=== PATIENT | female | born 1970 | race Caucasian/White ===

== ENCOUNTER 2021-04-27 09:32 | Inpatient (IN) | payer OTHER ==
[~2021-04-27] VITALS: Ht 162.6 cm; Wt 85.4 kg
[2021-04-27] MEDS ORDERED: SODIUM CHLORIDE 0.9% 1,000 ML IV ONE (09:45)
[2021-04-27 10:06] LABS: ANION GAP 9 mmol/L (8-16); CALCIUM, TOTAL 9.5 mg/dL (8.8-10.5); CARBON DIOXIDE 27 mmol/L (22-29); CHLORIDE 103 mmol/L (98-107); CREATININE 0.92 mg/dL (0.60-1.30); GLOMERULAR FILTR. RATE CALC > 60 mL/min (>60); GLUCOSE,RANDOM 123 mg/dL (70-110); POTASSIUM 3.2 mmol/L (3.5-5.1); SODIUM SERUM 139 mmol/L (136-145); UREA NITROGEN, BLOOD 10 mg/dL (7-18)
[2021-04-27 10:08] LABS: BASOPHILS % (AUTO) 0.4 % (0.0-2.0); EOSINOPHILS % (AUTO) 0.8 % (1.0-6.0); HEMOGLOBIN 13.9 g/dL (12.0-16.0); LYMPHOCYTES # (AUTO) 0.9 K/uL (1.0-4.8); LYMPHOCYTES % (AUTO) 14.7 % (22.0-44.0); MEAN CORPUSCULAR HEMOGLOBIN 31.5 pg (26.0-34.0); MEAN CORPUSCULAR HGB CONC 33.8 G/dL (31.0-37.0); MEAN CORPUSCULAR VOLUME 93 fL (80-100); MONOCYTES # (AUTO) 0.4 K/uL (0.1-1.0); MONOCYTES % (AUTO) 6.8 % (2.0-9.0); NEUTROPHILS # (AUTO) 4.5 K/uL (1.8-7.7); NEUTROPHILS % (AUTO) 77.3 % (40.0-70.0); PLATELET COUNT (AUTO) 220 K/uL (150-450); RED CELL DISTRIBUTION WIDTH 13.3 % (11.5-14.5)
[2021-04-27 10:14] LABS: SALICYLATE 1.2 mg/dL (2.8-20.0)
[2021-04-27 10:19] LABS: ACETAMINOPHEN < 2 mcg/mL (10-30); ALANINE AMINOTRANSFERASE 28 U/L (12-78); ALBUMIN 4.1 g/dL (3.4-5.0); ALKALINE PHOSPHATASE 43 U/L (46-116); ASPARTATE AMINOTRANSFERASE 19 U/L (15-37); BILIRUBIN,TOTAL 0.4 mg/dL (0.1-1.0); HCG,QUANTITATIVE < 1 mIU/mL (0-6); TOTAL PROTEIN, SERUM 7.9 g/dL (6.4-8.2)
[2021-04-27] MEDS ORDERED: POTASSIUM CHL 10 MEQ/WATER 50 ML IV PRN (10:45)
[2021-04-27] MEDS ORDERED: MAGNESIUM SULFATE 2 GM/WATER 50 ML IV PRN (10:45)
[2021-04-27] MEDS ORDERED: MAGNESIUM SULFATE 4 GM/WATER 100 ML IV PRN (10:45)
[2021-04-27] MEDS ORDERED: MAGNESIUM OXIDE 400 MG TABLET PO PRN (10:45)
[2021-04-27] MEDS ORDERED: ONDANSETRON HCL 4 MG/2 ML VIAL IVP PRN (10:45)
[2021-04-27] MEDS ORDERED: POTASSIUM CHLORIDE 20 MEQ ER TABLET PO PRN (10:45)
[2021-04-27 11:02] LABS: COVID AG,FIA SOURCE NASOPHARYNGEAL
[2021-04-27] MEDS: PANTOPRAZOLE SODIUM 40 MG/VIAL IVP SCH (11:47)
[2021-04-27] MEDS: SODIUM CHLORIDE 0.9% 1,000 ML IV SCH ×2 (12:00→20:28)
[2021-04-27] MEDS: HEPARIN SODIUM,PORCINE 5,000 UNITS/ML VIAL SQ SCH ×2 (15:51→23:45)
[2021-04-27 17:35] LABS: AMPHET/METH SCREEN,URINE NEGATIVE (NEGATIVE); BARBITURATE SCREEN, URINE NEGATIVE (NEGATIVE); BENZODIAZEPINES SCREEN,URINE NEGATIVE (NEGATIVE); CANNABINOID SCREEN,URINE POSITIVE (NEGATIVE); COCAINE SCREEN,URINE NEGATIVE (NEGATIVE); METHADONE SCREEN, URINE NEGATIVE (NEGATIVE); OPIATE SCREEN,URINE NEGATIVE (NEGATIVE)
[2021-04-27 17:37] LABS: PHENCYCLIDINE SCREEN,URINE NEGATIVE (NEGATIVE)
[2021-04-27] MEDS ORDERED: HALOPERIDOL LACTATE 5 MG/ML VIAL IM ONE (18:00)
[2021-04-27] MEDS ORDERED: LORazepam 2 MG/ML VIAL IM ONE (18:00)
[2021-04-27] MEDS ORDERED: DiphenhydrAMINE HCL 50 MG/ML VIAL IM ONE (18:00)
[2021-04-27] MEDS: DOCUSATE SODIUM 100 MG CAPSULE PO SCH (20:49)
[2021-04-28] MEDS: PANTOPRAZOLE SODIUM 40 MG/VIAL IVP SCH (08:56)
[2021-04-28] MEDS: HEPARIN SODIUM,PORCINE 5,000 UNITS/ML VIAL SQ SCH (08:56)
[2021-04-28] MEDS: SODIUM CHLORIDE 0.9% 1,000 ML IV SCH (08:56)
[2021-04-28] MEDS: DOCUSATE SODIUM 100 MG CAPSULE PO SCH ×2 (08:57→16:16)
[2021-04-28 10:15] LABS: ANION GAP 13 mmol/L (8-16); CALCIUM, TOTAL 8.9 mg/dL (8.8-10.5); CARBON DIOXIDE 26 mmol/L (22-29); CHLORIDE 106 mmol/L (98-107); CREATININE 0.67 mg/dL (0.60-1.30); GLOMERULAR FILTR. RATE CALC > 60 mL/min (>60); GLUCOSE,RANDOM 105 mg/dL (70-110); POTASSIUM 3.2 mmol/L (3.5-5.1); SODIUM SERUM 145 mmol/L (136-145); UREA NITROGEN, BLOOD 7 mg/dL (7-18)
[2021-04-28] MEDS ORDERED: HALOPERIDOL 5 MG TABLET PO PRN (11:15)
[2021-04-28] MEDS ORDERED: INFLUENZA VIRUS VACCINE QVS 2021-22 (6MO+)/PF 60 MCG/0.5 ML SYRINGE IM. ONE (14:00)
[2021-04-28 15:01] VITALS: BP 144/69
[2021-04-28] MEDS ORDERED: POTASSIUM CHLORIDE 20 MEQ ER TABLET PO ONE (15:30)
[2021-04-28 16:05] VITALS: BP 143/73
[2021-04-28] MEDS: ZOLPIDEM TARTRATE 10 MG TABLET PO PRN (20:30)
[2021-04-28] MEDS: LORazepam 2 MG TABLET PO PRN (20:30)
[2021-04-29 00:46] VITALS: BP 138/76
[2021-04-29 08:21] VITALS: BP 133/105
[2021-04-29] MEDS: DOCUSATE SODIUM 100 MG CAPSULE PO SCH ×2 (08:24→16:46)
[2021-04-29] MEDS: ACETAMINOPHEN 325 MG TABLET PO PRN ×2 (12:10→20:38)
[2021-04-29 16:15] VITALS: BP 130/85
[2021-04-29] MEDS: ZOLPIDEM TARTRATE 10 MG TABLET PO PRN (20:38)
[2021-04-29] MEDS: LORazepam 2 MG TABLET PO PRN (20:41)
[2021-04-29] MEDS ORDERED: BENZOCAINE/MENTHOL LOZENGE PO PRN (23:15)
[2021-04-29] MEDS ORDERED: ONDANSETRON HCL 4 MG TABLET PO PRN (23:15)
[2021-04-29] MEDS ORDERED: BACITRACIN 28 GM OINTMENT TP PRN (23:15)
[2021-04-29] MEDS ORDERED: MAG HYDROX/AL HYDROX/SIMETH ES 30 ML SUSPENSION UDCUP PO PRN (23:15)
[2021-04-29] MEDS ORDERED: ACETAMINOPHEN 325 MG TABLET PO PRN (23:15)
[2021-04-29] MEDS ORDERED: LOPERAMIDE HCL 2 MG CAPSULE PO PRN (23:15)
[2021-04-29] MEDS ORDERED: PETROLATUM,WHITE 28 GM JELLY TP PRN (23:15)
[2021-04-29] MEDS ORDERED: CloNIDine HCL 0.1 MG TABLET PO PRN (23:15)
[2021-04-29] MEDS ORDERED: OMEPRAZOLE 20 MG CAPSULE PO PRN (23:15)
[2021-04-29] MEDS ORDERED: ALBUTEROL SULFATE HFA 90 MCG/PUFF 8 GM INHALER IH PRN (23:15)
[2021-04-29] MEDS ORDERED: MAGNESIUM HYDROXIDE SUSPENSION 30 ML UDCUP PO PRN (23:15)
[2021-04-29] MEDS ORDERED: IBUPROFEN 600 MG TABLET PO PRN (23:15)
[2021-04-30 00:58] VITALS: BP 126/75
[2021-04-30 01:48] VITALS: BP 120/84
[2021-04-30] MEDS: LORazepam 2 MG TABLET PO PRN (01:48)
[2021-04-30 08:06] VITALS: BP 116/80
[2021-04-30] MEDS: DOCUSATE SODIUM 100 MG CAPSULE PO SCH (08:12)
[2021-04-30 08:24] LABS: ANION GAP 8 mmol/L (8-16); CALCIUM, TOTAL 9.6 mg/dL (8.8-10.5); CARBON DIOXIDE 30 mmol/L (22-29); CHLORIDE 106 mmol/L (98-107); CHOL/HDL RATIO 2.6 (3.9-5.7); CHOLESTEROL 166 mg/dL (131-200); CREATININE 0.73 mg/dL (0.60-1.30); FREE T4 (FREE THYROXINE) 1.32 ng/dL (0.76-1.46); GLOMERULAR FILTR. RATE CALC > 60 mL/min (>60); GLUCOSE,RANDOM 116 mg/dL (70-110); HDL CHOLESTEROL 65 mg/dL (40-60); LDL CHOL (CALC.) 90 mg/dL (0-130); POTASSIUM 3.7 mmol/L (3.5-5.1); SODIUM SERUM 144 mmol/L (136-145); THYROID STIMULATING HORMONE 1.24 uIU/mL (0.36-3.74); TRIGLYCERIDES 57 mg/dL (15-150); UREA NITROGEN, BLOOD 5 mg/dL (7-18)
== END 2021-04-30 11:35 | disposition home or self-care (01) | DRG 885 ==
LOC: EMS 09:37 → B3A 04-28 09:38
PROVIDERS: ADMIT Psychiatry & Neurology Psychiatry; ATTEND Psychiatry & Neurology Psychiatry
DX: F31.9 Bipolar disorder, unspecified (principal); T42.6X2A Poisoning by other antiepileptic and sedative-hypnotic drugs, intentional self-harm, initial encounter; Z20.822 Contact with and (suspected) exposure to COVID-19; E87.6 Hypokalemia; E66.9 Obesity, unspecified; F22 Delusional disorders; F43.10 Post-traumatic stress disorder, unspecified; G47.00 Insomnia, unspecified; K59.00 Constipation, unspecified; Y92.89 Other specified places as the place of occurrence of the external cause; Z23 Encounter for immunization; Z88.2 Allergy status to sulfonamides; Z68.32 Body mass index [BMI] 32.0-32.9, adult
CPT/HCPCS: 80048; 80053; 80061; 83735; 84439; 84443; 84702; 85025; 90686; 93005; 99291; C9113; G0480; G0481; J1200; J1630; J1644; J2060; J7030

== ENCOUNTER 2022-07-10 13:21 | Inpatient (IN) | payer OTHER ==
[~2022-07-10] VITALS: Ht 162.6 cm; Wt 64.8 kg
[2022-07-10 15:24] LABS: BASOPHILS % (AUTO) 0.7 % (0.0-2.0); EOSINOPHILS % (AUTO) 0.5 % (1.0-6.0); HEMATOCRIT 40.2 % (36-46); HEMOGLOBIN 13.2 g/dL (12.0-16.0); LYMPHOCYTES # (AUTO) 1.2 K/uL (1.0-4.8); MEAN CORPUSCULAR HEMOGLOBIN 30.9 pg (26.0-34.0); MEAN CORPUSCULAR HGB CONC 32.7 G/dL (31.0-37.0); MEAN CORPUSCULAR VOLUME 95 fL (80-100); MONOCYTES # (AUTO) 0.5 K/uL (0.1-1.0); MONOCYTES % (AUTO) 6.2 % (2.0-9.0); NEUTROPHILS % (AUTO) 77.6 % (40.0-70.0); PLATELET COUNT (AUTO) 271 K/uL (150-450); RED BLOOD CELL COUNT(AUTO) 4.26 MIL/uL (4.00-5.20); RED CELL DISTRIBUTION WIDTH 13.5 % (11.5-14.5)
[2022-07-10 15:25] LABS: COVID AG,FIA SOURCE NASAL SWAB
[2022-07-10 15:35] LABS: ANION GAP 8 mmol/L (8-16); CALCIUM, TOTAL 8.5 mg/dL (8.8-10.5); CARBON DIOXIDE 29 mmol/L (22-29); CHLORIDE 102 mmol/L (98-107); CREATININE 0.65 mg/dL (0.60-1.30); GLOMERULAR FILTR. RATE CALC > 60 mL/min (>60); GLUCOSE,RANDOM 109 mg/dL (70-110); POTASSIUM 3.7 mmol/L (3.5-5.1); SODIUM SERUM 139 mmol/L (136-145); UREA NITROGEN, BLOOD 9 mg/dL (7-18)
[2022-07-10 15:40] LABS: ALANINE AMINOTRANSFERASE 30 U/L (12-78); ALBUMIN 3.9 g/dL (3.4-5.0); ALKALINE PHOSPHATASE 47 U/L (46-116); ASPARTATE AMINOTRANSFERASE 20 U/L (15-37); BILIRUBIN,TOTAL 0.2 mg/dL (0.1-1.0)
[2022-07-10] MEDS ORDERED: ZOLPIDEM TARTRATE 10 MG TABLET PO PRN (16:00)
[2022-07-10 17:09] LABS: APPEARANCE,URINE HAZY (CLEAR); BILIRUBIN,URINE NEGATIVE (NEGATIVE); GLUCOSE, URINE (UA) TRACE mg/dL (NEGATIVE); KETONES,URINE NEGATIVE (NEGATIVE); LEUKOCYTE ESTERASE ,URINE NEGATIVE (NEGATIVE); NITRATE,URINE NEGATIVE (NEGATIVE); OCCULT BLOOD,URINE NEGATIVE (NEGATIVE); PH,URINE 6.5 (5.0-8.0); PROTEIN,URINE NEGATIVE (NEGATIVE); SPECIFIC GRAVITIY, URINE 1.011 (1.003-1.030); UROBILINOGEN,URINE <=1.0 mg/dL (<=1.0)
[2022-07-10 17:15] LABS: AMPHET/METH SCREEN,URINE NEGATIVE (NEGATIVE); BARBITURATE SCREEN, URINE NEGATIVE (NEGATIVE); BENZODIAZEPINES SCREEN,URINE NEGATIVE (NEGATIVE); CANNABINOID SCREEN,URINE POSITIVE (NEGATIVE); COCAINE SCREEN,URINE NEGATIVE (NEGATIVE); METHADONE SCREEN, URINE NEGATIVE (NEGATIVE); OPIATE SCREEN,URINE NEGATIVE (NEGATIVE); PHENCYCLIDINE SCREEN,URINE NEGATIVE (NEGATIVE)
[2022-07-10] MEDS ORDERED: PETROLATUM,WHITE 5 GM PACKET JELLY TP ONE (18:45)
[2022-07-10] MEDS ORDERED: BISACODYL 5 MG EC TABLET PO PRN (19:15)
[2022-07-10 21:14] VITALS: BP 139/81
[2022-07-10] MEDS ORDERED: HydrOXYzine PAMOATE 50 MG CAPSULE PO PRN (21:45)
[2022-07-10] MEDS ORDERED: TUBERCULIN, PURIFIED PROTEIN DERIVATIVE 5 TU/0.1 ML SYRINGE ID ONE (21:45)
[2022-07-10] MEDS ORDERED: MAG HYDROX/AL HYDROX/SIMETH ES 30 ML SUSPENSION UDCUP PO PRN (21:45)
[2022-07-10] MEDS ORDERED: MAGNESIUM HYDROXIDE SUSPENSION 30 ML UDCUP PO PRN (21:45)
[2022-07-10] MEDS ORDERED: LOPERAMIDE HCL 2 MG CAPSULE PO PRN (21:45)
[2022-07-10] MEDS ORDERED: ACETAMINOPHEN 325 MG TABLET PO PRN (21:45)
[2022-07-10] MEDS ORDERED: PROMETHAZINE HCL 25 MG TABLET PO PRN (21:45)
[2022-07-10] MEDS ORDERED: GuaiFENesin/D-METHORPHAN [SUGAR-FREE] 200-20MG/10 ML SYRUP UDCUP PO PRN (21:45)
[2022-07-10] MEDS ORDERED: INFLUENZA VIRUS VACCINE QVS 2022-23 (6MO+)/PF 60 MCG/0.5 ML SYRINGE IM. ONE (22:00)
[2022-07-10] MEDS: LORazepam 2 MG TABLET PO PRN (22:26)
[2022-07-11 07:42] LABS: HEMOGLOBIN A1C 5.8 % (3.8-5.6)
[2022-07-11 07:46] LABS: CHOL/HDL RATIO 2.4 (3.9-5.7); FREE T4 (FREE THYROXINE) 0.83 ng/dL (0.76-1.46); THYROID STIMULATING HORMONE 0.95 uIU/mL (0.36-3.74)
[2022-07-11] MEDS: NALTREXONE HCL 50 MG TABLET PO SCH (08:51)
[2022-07-11] MEDS: THIAMINE 100 MG TABLET PO SCH ×2 (08:51→16:38)
[2022-07-11] MEDS: OMEGA-3/DHA/EPA/FISH OIL 1,000 MG CAPSULE PO SCH (08:51)
[2022-07-11] MEDS: FOLIC ACID 1 MG TABLET PO SCH (08:51)
[2022-07-11] MEDS: MULTIVITAMINS WITH MINERALS, THERAPEUTIC TABLET PO SCH (08:52)
[2022-07-11] MEDS ORDERED: DEXTROMETHORPHAN HBR/QUINIDINE 20/10 MG CAPSULE PO SCH (09:00)
[2022-07-11 09:32] VITALS: BP 136/79
[2022-07-11] MEDS: LORazepam 2 MG TABLET PO PRN (14:45)
[2022-07-11] MEDS: OLANZapine 5 MG RAPDIS TABLET PO PRN (14:45)
[2022-07-11 20:30] VITALS: BP 115/73
[2022-07-11] MEDS: MELATONIN 5 MG TABLET PO SCH (20:35)
[2022-07-11] MEDS: DIVALPROEX SODIUM 250 MG ER TABLET PO SCH (20:35)
[2022-07-11] MEDS ORDERED: OLANZapine 5 MG RAPDIS TABLET PO SCH (21:00)
[2022-07-11] MEDS ORDERED: MIRTAZAPINE 15 MG TABLET PO SCH (21:00)
[2022-07-12] MEDS: MULTIVITAMINS WITH MINERALS, THERAPEUTIC TABLET PO SCH (08:56)
[2022-07-12] MEDS: OMEGA-3/DHA/EPA/FISH OIL 1,000 MG CAPSULE PO SCH (08:56)
[2022-07-12] MEDS: NALTREXONE HCL 50 MG TABLET PO SCH (08:56)
[2022-07-12] MEDS: FOLIC ACID 1 MG TABLET PO SCH (08:57)
[2022-07-12] MEDS: THIAMINE 100 MG TABLET PO SCH ×2 (08:57→16:26)
[2022-07-12] MEDS: LORazepam 2 MG TABLET PO PRN (08:57)
[2022-07-12 09:12] VITALS: BP 126/68
[2022-07-12 20:34] VITALS: BP 130/81
[2022-07-12] MEDS: MELATONIN 5 MG TABLET PO SCH (20:38)
[2022-07-12] MEDS: OLANZapine 10 MG RAPDIS TABLET PO SCH (20:39)
[2022-07-12] MEDS: DIVALPROEX SODIUM 250 MG ER TABLET PO SCH (20:39)
[2022-07-13 08:37] VITALS: BP 139/74
[2022-07-13] MEDS: NALTREXONE HCL 50 MG TABLET PO SCH (09:04)
[2022-07-13] MEDS: MULTIVITAMINS WITH MINERALS, THERAPEUTIC TABLET PO SCH (09:04)
[2022-07-13] MEDS: FOLIC ACID 1 MG TABLET PO SCH (09:04)
[2022-07-13] MEDS: OMEGA-3/DHA/EPA/FISH OIL 1,000 MG CAPSULE PO SCH (09:04)
[2022-07-13] MEDS: THIAMINE 100 MG TABLET PO SCH ×2 (09:04→16:39)
[2022-07-13] MEDS: LORazepam 2 MG TABLET PO PRN (10:41)
[2022-07-13] MEDS: OLANZapine 5 MG RAPDIS TABLET PO PRN (10:41)
[2022-07-13] MEDS ORDERED: DIVA-85 PO (17:21)
[2022-07-13] MEDS ORDERED: NALT50TA PO (17:21)
[2022-07-13] MEDS ORDERED: OMEG-135 PO (17:21)
[2022-07-13] MEDS ORDERED: MELA5TAB40 PO (17:21)
[2022-07-13] MEDS ORDERED: OLAN10TA26 PO (17:21)
[2022-07-13 20:05] VITALS: BP 124/75
[2022-07-13] MEDS: DIVALPROEX SODIUM 250 MG ER TABLET PO SCH (20:09)
[2022-07-13] MEDS: OLANZapine 10 MG RAPDIS TABLET PO SCH (20:10)
[2022-07-13] MEDS: MELATONIN 5 MG TABLET PO SCH (20:10)
[2022-07-14 08:39] VITALS: BP 117/70
[2022-07-14] MEDS: OMEGA-3/DHA/EPA/FISH OIL 1,000 MG CAPSULE PO SCH (08:49)
[2022-07-14] MEDS: FOLIC ACID 1 MG TABLET PO SCH (08:50)
[2022-07-14] MEDS: THIAMINE 100 MG TABLET PO SCH (08:50)
[2022-07-14] MEDS: MULTIVITAMINS WITH MINERALS, THERAPEUTIC TABLET PO SCH (08:50)
[2022-07-14] MEDS: NALTREXONE HCL 50 MG TABLET PO SCH (08:50)
== END 2022-07-14 15:30 | disposition home or self-care (01) | DRG 885 ==
LOC: EMS 13:22 → B2S 18:50
PROVIDERS: ADMIT Psychiatry & Neurology Psychiatry; ATTEND Psychiatry & Neurology Psychiatry
DX: F31.64 Bipolar disorder, current episode mixed, severe, with psychotic features (principal); R45.851 Suicidal ideations; E87.6 Hypokalemia; K59.00 Constipation, unspecified; F12.10 Cannabis abuse, uncomplicated; F43.10 Post-traumatic stress disorder, unspecified; G47.00 Insomnia, unspecified; T50.902A Poisoning by unspecified drugs, medicaments and biological substances, intentional self-harm, initial encounter; Z20.822 Contact with and (suspected) exposure to COVID-19; Z88.2 Allergy status to sulfonamides; Z63.9 Problem related to primary support group, unspecified; Z59.9 Problem related to housing and economic circumstances, unspecified; Z65.3 Problems related to other legal circumstances; Z55.9 Problems related to education and literacy, unspecified; Y92.89 Other specified places as the place of occurrence of the external cause; Z91.51 Personal history of suicidal behavior; Z23 Encounter for immunization
CPT/HCPCS: 80053; 80061; 80164; 80307; 81003; 83036; 84439; 84443; 84703; 85025; 86592; 87081; 90686; G0480; Q9967

== ENCOUNTER 2022-07-15 17:29 | Inpatient (IN) | payer OTHER ==
[~2022-07-15] VITALS: Ht 162.6 cm; Wt 66.7 kg
[~2022-07-15 17:29] MED LIST: DIVA-85 PO; MELA5TAB40 PO; NALT50TA PO; OLAN10TA26 PO; OMEG-135 PO
[2022-07-15] MEDS ORDERED: ZOLPIDEM TARTRATE 10 MG TABLET PO PRN (19:15)
[2022-07-15] MEDS ORDERED: ChlorproMAZINE HCL 100 MG TABLET PO PRN (19:15)
[2022-07-15] MEDS ORDERED: -PHARMACY VACCINE NOTE- MISC ONE (20:30)
[2022-07-16 06:28] VITALS: BP 115/77
[2022-07-16] MEDS: LORazepam 1 MG TABLET PO PRN ×2 (09:57→19:52)
[2022-07-16 10:15] VITALS: BP 118/70
[2022-07-16] MEDS: MELATONIN 5 MG TABLET PO SCH (20:39)
[2022-07-16] MEDS: OLANZapine 10 MG RAPDIS TABLET PO SCH (20:39)
[2022-07-16] MEDS: DIVALPROEX SODIUM 250 MG ER TABLET PO SCH (20:39)
[2022-07-16] MEDS ORDERED: MELATONIN 5 MG TABLET PO SCH (21:00)
[2022-07-16] MEDS ORDERED: DIVALPROEX SODIUM 250 MG ER TABLET PO SCH (21:00)
[2022-07-16] MEDS ORDERED: BISACODYL 5 MG EC TABLET PO PRN (21:30)
[2022-07-16 23:19] VITALS: BP 123/73
[2022-07-17] MEDS: NALTREXONE HCL 50 MG TABLET PO SCH (08:22)
[2022-07-17] MEDS: LORazepam 1 MG TABLET PO PRN ×2 (08:22→16:22)
[2022-07-17 08:24] VITALS: BP 121/70
[2022-07-17] MEDS ORDERED: GuaiFENesin/D-METHORPHAN [SUGAR-FREE] 200-20MG/10 ML SYRUP UDCUP PO PRN (10:30)
[2022-07-17] MEDS ORDERED: HydrOXYzine PAMOATE 50 MG CAPSULE PO PRN (10:30)
[2022-07-17] MEDS ORDERED: LOPERAMIDE HCL 2 MG CAPSULE PO PRN (10:30)
[2022-07-17] MEDS ORDERED: MAGNESIUM HYDROXIDE SUSPENSION 30 ML UDCUP PO PRN (10:30)
[2022-07-17] MEDS ORDERED: PROMETHAZINE HCL 25 MG TABLET PO PRN (10:30)
[2022-07-17] MEDS ORDERED: MAG HYDROX/AL HYDROX/SIMETH ES 30 ML SUSPENSION UDCUP PO PRN (10:30)
[2022-07-17] MEDS ORDERED: ACETAMINOPHEN 325 MG TABLET PO PRN (10:30)
[2022-07-17] MEDS: THIAMINE 100 MG TABLET PO SCH (16:18)
[2022-07-17 20:43] VITALS: BP 125/81
[2022-07-17] MEDS ORDERED: OLANZapine 5 MG RAPDIS TABLET PO PRN (20:45)
[2022-07-17] MEDS: MELATONIN 5 MG TABLET PO SCH (20:53)
[2022-07-17] MEDS: DIVALPROEX SODIUM 250 MG ER TABLET PO SCH (20:53)
[2022-07-17] MEDS: OLANZapine 10 MG RAPDIS TABLET PO SCH (20:54)
[2022-07-18 08:20] LABS: ANION GAP 3 mmol/L (8-16); CALCIUM, TOTAL 8.9 mg/dL (8.8-10.5); CARBON DIOXIDE 31 mmol/L (22-29); CHLORIDE 104 mmol/L (98-107); GLOMERULAR FILTR. RATE CALC > 60 mL/min (>60); GLUCOSE,RANDOM 86 mg/dL (70-110); SODIUM SERUM 138 mmol/L (136-145); UREA NITROGEN, BLOOD 14 mg/dL (7-18)
[2022-07-18] MEDS: MULTIVITAMINS WITH MINERALS, THERAPEUTIC TABLET PO SCH (08:50)
[2022-07-18] MEDS: NALTREXONE HCL 50 MG TABLET PO SCH (08:50)
[2022-07-18] MEDS: THIAMINE 100 MG TABLET PO SCH ×2 (08:50→16:45)
[2022-07-18] MEDS: FOLIC ACID 1 MG TABLET PO SCH (08:50)
[2022-07-18] MEDS: OMEGA-3/DHA/EPA/FISH OIL 1,000 MG CAPSULE PO SCH (08:50)
[2022-07-18 09:30] VITALS: BP 136/79
[2022-07-18 20:32] VITALS: BP 119/73
[2022-07-18] MEDS: DIVALPROEX SODIUM 250 MG ER TABLET PO SCH (20:39)
[2022-07-18] MEDS: OLANZapine 10 MG RAPDIS TABLET PO SCH (20:39)
[2022-07-18] MEDS: MELATONIN 5 MG TABLET PO SCH (20:39)
[2022-07-19] MEDS: OMEGA-3/DHA/EPA/FISH OIL 1,000 MG CAPSULE PO SCH ×2 (08:56→09:46)
[2022-07-19] MEDS: FOLIC ACID 1 MG TABLET PO SCH ×2 (08:56→09:44)
[2022-07-19] MEDS: NALTREXONE HCL 50 MG TABLET PO SCH ×2 (08:57→09:45)
[2022-07-19] MEDS: THIAMINE 100 MG TABLET PO SCH ×3 (08:57→16:05)
[2022-07-19] MEDS: MULTIVITAMINS WITH MINERALS, THERAPEUTIC TABLET PO SCH ×2 (08:57→09:45)
[2022-07-19] MEDS ORDERED: DIVA-85 PO (16:37)
[2022-07-19] MEDS ORDERED: OLAN10TA26 PO (16:37)
[2022-07-19] MEDS ORDERED: MELA5TAB40 PO (16:37)
[2022-07-19] MEDS ORDERED: OMEG-135 PO (16:37)
[2022-07-19] MEDS ORDERED: NALT50TA PO (16:37)
== END 2022-07-19 17:30 | disposition left against medical advice (07) | DRG 885 ==
LOC: B2S 07-16 04:59
PROVIDERS: ADMIT Psychiatry & Neurology Psychiatry; ATTEND Psychiatry & Neurology Psychiatry
DX: F25.9 Schizoaffective disorder, unspecified (principal); R45.851 Suicidal ideations; F41.9 Anxiety disorder, unspecified; E87.6 Hypokalemia; F32.A Depression, unspecified; K59.00 Constipation, unspecified; Z55.9 Problems related to education and literacy, unspecified; Z59.9 Problem related to housing and economic circumstances, unspecified; Z65.3 Problems related to other legal circumstances; Z63.9 Problem related to primary support group, unspecified; Z56.0 Unemployment, unspecified; Z79.899 Other long term (current) drug therapy; Z88.2 Allergy status to sulfonamides
CPT/HCPCS: 80048; 87081; Q9967

== ENCOUNTER 2022-07-15 18:51 | Emergency (ER) | payer OTHER ==
[~2022-07-15] VITALS: Ht 162.6 cm; Wt 67.3 kg
[2022-07-15] MEDS ORDERED: DiphenhydrAMINE HCL 50 MG/ML VIAL IM ONE (19:45)
[2022-07-15] MEDS ORDERED: HALOPERIDOL LACTATE 5 MG/ML VIAL IM ONE (19:45)
[2022-07-15] MEDS ORDERED: LORazepam 2 MG/ML VIAL IM ONE (19:45)
[2022-07-15 20:37] LABS: COVID AG,FIA SOURCE NASOPHARYNGEAL
[2022-07-15 20:55] LABS: EOSINOPHILS % (AUTO) 1.3 % (1.0-6.0); HEMATOCRIT 37.2 % (36-46); HEMOGLOBIN 12.3 g/dL (12.0-16.0); LYMPHOCYTES # (AUTO) 1.7 K/uL (1.0-4.8); LYMPHOCYTES % (AUTO) 26.8 % (22.0-44.0); MEAN CORPUSCULAR HEMOGLOBIN 31.2 pg (26.0-34.0); MEAN CORPUSCULAR HGB CONC 33.2 G/dL (31.0-37.0); MEAN CORPUSCULAR VOLUME 94 fL (80-100); MONOCYTES # (AUTO) 0.4 K/uL (0.1-1.0); MONOCYTES % (AUTO) 6.9 % (2.0-9.0); NEUTROPHILS # (AUTO) 4.2 K/uL (1.8-7.7); PLATELET COUNT (AUTO) 230 K/uL (150-450); RED BLOOD CELL COUNT(AUTO) 3.96 MIL/uL (4.00-5.20); RED CELL DISTRIBUTION WIDTH 13.3 % (11.5-14.5)
[2022-07-15 21:08] LABS: ANION GAP 7 mmol/L (8-16); CARBON DIOXIDE 30 mmol/L (22-29); CHLORIDE 104 mmol/L (98-107); CREATININE 0.61 mg/dL (0.60-1.30); GLOMERULAR FILTR. RATE CALC > 60 mL/min (>60); GLUCOSE,RANDOM 114 mg/dL (70-110); POTASSIUM 3.4 mmol/L (3.5-5.1); SODIUM SERUM 141 mmol/L (136-145); UREA NITROGEN, BLOOD 9 mg/dL (7-18)
[2022-07-15 21:13] LABS: ALANINE AMINOTRANSFERASE 32 U/L (12-78); ALBUMIN 3.7 g/dL (3.4-5.0); ALKALINE PHOSPHATASE 47 U/L (46-116); ASPARTATE AMINOTRANSFERASE 21 U/L (15-37); BILIRUBIN,TOTAL 0.2 mg/dL (0.1-1.0); TOTAL PROTEIN, SERUM 7.2 g/dL (6.4-8.2); VALPROIC ACID 19 mcg/mL (50-100)
[2022-07-16 04:41] VITALS: BP 118/71
== END 2022-07-16 04:30 | disposition home or self-care (01) ==
LOC: EMS 18:52
DX: F32.9 Major depressive disorder, single episode, unspecified (principal); F12.90 Cannabis use, unspecified, uncomplicated; Z88.2 Allergy status to sulfonamides; Z20.822 Contact with and (suspected) exposure to COVID-19
CPT/HCPCS: 80053; 80164; 85025; 36415; 93005; 96372; 99291; 87426; G0480; J1200; J1630; J2060

== ENCOUNTER 2023-05-31 15:37 | Inpatient (IN) | payer OTHER ==
[~2023-05-31] VITALS: Ht 162.6 cm; Wt 75.4 kg
[2023-05-31] MEDS ORDERED: SODIUM CHLORIDE 0.9% 1,000 ML IV ONE ×2 (15:45→17:30)
[2023-05-31 15:59] LABS: BASOPHILS % (AUTO) 0.9 % (0.0-2.0); EOSINOPHILS % (AUTO) 0.2 % (1.0-6.0); HEMATOCRIT 39.2 % (36-46); HEMOGLOBIN 13.2 g/dL (12.0-16.0); LYMPHOCYTES # (AUTO) 0.9 K/uL (1.0-4.8); LYMPHOCYTES % (AUTO) 17.4 % (22.0-44.0); MEAN CORPUSCULAR HEMOGLOBIN 32.8 pg (26.0-34.0); MEAN CORPUSCULAR HGB CONC 33.7 G/dL (31.0-37.0); MEAN CORPUSCULAR VOLUME 98 fL (80-100); MONOCYTES # (AUTO) 0.2 K/uL (0.1-1.0); NEUTROPHILS # (AUTO) 3.8 K/uL (1.8-7.7); NEUTROPHILS % (AUTO) 77.5 % (40.0-70.0); PLATELET COUNT (AUTO) 217 K/uL (150-450); RED BLOOD CELL COUNT(AUTO) 4.02 MIL/uL (4.00-5.20); WHITE BLOOD COUNT (AUTO) 4.9 K/uL (4.5-11.0)
[2023-05-31 16:12] LABS: ANION GAP 18 mmol/L (8-16); CALCIUM, TOTAL 8.9 mg/dL (8.8-10.5); CARBON DIOXIDE 21 mmol/L (22-29); CHLORIDE 104 mmol/L (98-107); CREATININE 0.75 mg/dL (0.60-1.30); GLOMERULAR FILTR. RATE CALC > 60 mL/min (>60); GLUCOSE,RANDOM 135 mg/dL (70-110); POTASSIUM 3.3 mmol/L (3.5-5.1); SODIUM SERUM 143 mmol/L (136-145); UREA NITROGEN, BLOOD 5 mg/dL (7-18)
[2023-05-31 16:18] LABS: ALANINE AMINOTRANSFERASE 18 U/L (12-78); ALBUMIN 4.2 g/dL (3.4-5.0); ALCOHOL, BLOOD (SERUM) 87 mg/dL (0-10); ALKALINE PHOSPHATASE 47 U/L (46-116); ASPARTATE AMINOTRANSFERASE 19 U/L (15-37); BILIRUBIN,TOTAL 0.3 mg/dL (0.1-1.0); TOTAL PROTEIN, SERUM 7.4 g/dL (6.4-8.2)
[2023-05-31 16:19] LABS: ACETAMINOPHEN < 2 mcg/mL (10-30)
[2023-05-31 16:23] LABS: COVID AG,FIA SOURCE NASAL SWAB
[2023-05-31 16:24] LABS: SALICYLATE 1.4 mg/dL (2.8-20.0)
[2023-05-31 16:31] LABS: SARS-COV2 (COVID) ANTIGEN,FIA Negative (Negative)
[2023-05-31] MEDS ORDERED: OLANZapine 5 MG RAPDIS TABLET PO PRN (16:45)
[2023-05-31] MEDS ORDERED: ZOLPIDEM TARTRATE 10 MG TABLET PO PRN (16:45)
[2023-05-31] MEDS ORDERED: LORazepam 2 MG TABLET PO PRN (16:45)
[2023-05-31] MEDS ORDERED: POTASSIUM CHL 10 MEQ/WATER 50 ML IV ONE (17:30)
[2023-05-31] MEDS ORDERED: MAGNESIUM SULFATE 2 GM/WATER 50 ML IV ONE (17:30)
[2023-05-31 20:03] LABS: APPEARANCE,URINE CLEAR (CLEAR); BILIRUBIN,URINE NEGATIVE (NEGATIVE); COLOR,URINE LIGHT YELLOW (YELLOW); GLUCOSE, URINE (UA) NEGATIVE (NEGATIVE); LEUKOCYTE ESTERASE ,URINE NEGATIVE (NEGATIVE); NITRATE,URINE NEGATIVE (NEGATIVE); OCCULT BLOOD,URINE TRACE (NEGATIVE); PROTEIN,URINE NEGATIVE (NEGATIVE); SPECIFIC GRAVITIY, URINE 1.009 (1.003-1.030); UROBILINOGEN,URINE <=1.0 mg/dL (<=1.0)
[2023-05-31 20:10] LABS: ALCOHOL, URINE DRUG SCREEN POSITIVE (NEGATIVE); AMPHET/METH SCREEN,URINE NEGATIVE (NEGATIVE); BARBITURATE SCREEN, URINE NEGATIVE (NEGATIVE); BENZODIAZEPINES SCREEN,URINE NEGATIVE (NEGATIVE); CANNABINOID SCREEN,URINE POSITIVE (NEGATIVE); COCAINE SCREEN,URINE NEGATIVE (NEGATIVE); METHADONE SCREEN, URINE NEGATIVE (NEGATIVE); OPIATE SCREEN,URINE NEGATIVE (NEGATIVE); PHENCYCLIDINE SCREEN,URINE NEGATIVE (NEGATIVE)
[2023-05-31 20:32] LABS: BACTERIA,URINE None Seen /HPF (None Seen); RBC,URINE 0-2 /HPF (0-2); SQUAMOUS EPITHELIAL CELL,UR Few /LPF (None Seen); WBC,URINE None Seen /HPF (0-5)
[2023-05-31] MEDS: DOCUSATE SODIUM 100 MG CAPSULE PO SCH (21:08)
[2023-05-31] MEDS: SODIUM CHLORIDE 0.9% 1,000 ML IV SCH (21:08)
[2023-05-31 21:10] LABS: ACETAMINOPHEN < 2 mcg/mL (10-30)
[2023-05-31 21:29] LABS: LACTIC ACID 3.9 mmol/L (0.4-2.0)
[2023-05-31 21:33] LABS: COVID AG,FIA SOURCE NASAL SWAB
[2023-05-31 21:53] LABS: SARS-COV2 (COVID) ANTIGEN,FIA Negative (Negative)
[2023-05-31] MEDS ORDERED: RINGERS SOLUTION,LACTATED 1,000 ML IV ONE (22:30)
[2023-06-01] MEDS: HEPARIN SODIUM,PORCINE 5,000 UNITS/ML VIAL SQ SCH ×2 (01:52→08:21)
[2023-06-01 07:02] LABS: BASOPHILS % (AUTO) 0.6 % (0.0-2.0); EOSINOPHILS % (AUTO) 1.3 % (1.0-6.0); HEMATOCRIT 34.4 % (36-46); HEMOGLOBIN 12.1 g/dL (12.0-16.0); LYMPHOCYTES # (AUTO) 1.2 K/uL (1.0-4.8); LYMPHOCYTES % (AUTO) 28.9 % (22.0-44.0); MEAN CORPUSCULAR HEMOGLOBIN 33.9 pg (26.0-34.0); MEAN CORPUSCULAR HGB CONC 35.1 G/dL (31.0-37.0); MEAN CORPUSCULAR VOLUME 97 fL (80-100); MONOCYTES # (AUTO) 0.3 K/uL (0.1-1.0); MONOCYTES % (AUTO) 7.8 % (2.0-9.0); NEUTROPHILS # (AUTO) 2.6 K/uL (1.8-7.7); NEUTROPHILS % (AUTO) 61.4 % (40.0-70.0); PLATELET COUNT (AUTO) 199 K/uL (150-450); RED BLOOD CELL COUNT(AUTO) 3.56 MIL/uL (4.00-5.20); RED CELL DISTRIBUTION WIDTH 13.1 % (11.5-14.5); WHITE BLOOD COUNT (AUTO) 4.3 K/uL (4.5-11.0)
[2023-06-01 07:11] LABS: ANION GAP 11 mmol/L (8-16); CARBON DIOXIDE 24 mmol/L (22-29); CHLORIDE 107 mmol/L (98-107); CREATININE 0.55 mg/dL (0.60-1.30); GLOMERULAR FILTR. RATE CALC > 60 mL/min (>60); GLUCOSE,RANDOM 99 mg/dL (70-110); POTASSIUM 3.4 mmol/L (3.5-5.1); SODIUM SERUM 142 mmol/L (136-145); UREA NITROGEN, BLOOD 4 mg/dL (7-18)
[2023-06-01] MEDS: SODIUM CHLORIDE 0.9% 1,000 ML IV SCH (08:19)
[2023-06-01] MEDS: DOCUSATE SODIUM 100 MG CAPSULE PO SCH ×2 (09:00→16:50)
[2023-06-01 11:18] LABS: LACTIC ACID 0.6 mmol/L (0.4-2.0)
[2023-06-01] MEDS ORDERED: OLANZapine 5 MG RAPDIS TABLET PO PRN (14:30)
[2023-06-01] MEDS ORDERED: ZOLPIDEM TARTRATE 10 MG TABLET PO PRN (14:30)
[2023-06-01] MEDS ORDERED: IBUPROFEN 600 MG TABLET PO PRN (17:30)
[2023-06-01 17:46] VITALS: BP 125/66; PULSE 104; RESP 18; TEMP 97.8
[2023-06-01 18:34] VITALS: BP 137/90; PULSE 96; RESP 18; TEMP 97.8
[2023-06-01] MEDS ORDERED: INFLUENZA VIRUS VACCINE QVS 2023-24 (6MO+)/PF 60 MCG/0.5 ML SYRINGE IM. ONE (19:30)
[2023-06-01 21:24] VITALS: BP 111/61; PULSE 93; RESP 18; TEMP 98.2
[2023-06-01 21:34] VITALS: BP 111/61; PULSE 93; RESP 18; TEMP 98.2
[2023-06-02] MEDS: DOCUSATE SODIUM 100 MG CAPSULE PO SCH ×2 (08:15→16:54)
[2023-06-02 09:37] VITALS: BP 123/76; PULSE 100; RESP 16; TEMP 97.6
[2023-06-02 21:55] VITALS: BP 115/78; PULSE 90; RESP 18; TEMP 98.3
[2023-06-03] MEDS: DOCUSATE SODIUM 100 MG CAPSULE PO SCH ×2 (08:13→17:01)
[2023-06-03 08:51] VITALS: BP 124/87; PULSE 90; RESP 18; TEMP 97.8
[2023-06-03 11:38] VITALS: BP 120/66; PULSE 78; RESP 18
[2023-06-03] MEDS: ACETAMINOPHEN 325 MG TABLET PO PRN ×2 (11:41→21:04)
[2023-06-03 12:41] VITALS: RESP 17
[2023-06-03 21:01] VITALS: BP 128/70; PULSE 80; RESP 18; TEMP 97.9
[2023-06-03] MEDS: QUEtiapine FUMARATE 200 MG TABLET PO SCH (21:02)
[2023-06-03 22:04] VITALS: RESP 18
[2023-06-03 22:10] VITALS: BP 137/90; PULSE 74; RESP 18; TEMP 98
[2023-06-04 08:09] LABS: BASOPHILS % (AUTO) 1.1 % (0.0-2.0); EOSINOPHILS % (AUTO) 3.3 % (1.0-6.0); HEMATOCRIT 42.3 % (36-46); HEMOGLOBIN 14.7 g/dL (12.0-16.0); LYMPHOCYTES # (AUTO) 2.1 K/uL (1.0-4.8); LYMPHOCYTES % (AUTO) 41.8 % (22.0-44.0); MEAN CORPUSCULAR HEMOGLOBIN 33.7 pg (26.0-34.0); MEAN CORPUSCULAR HGB CONC 34.7 G/dL (31.0-37.0); MEAN CORPUSCULAR VOLUME 97 fL (80-100); MONOCYTES # (AUTO) 0.4 K/uL (0.1-1.0); MONOCYTES % (AUTO) 8.9 % (2.0-9.0); NEUTROPHILS # (AUTO) 2.3 K/uL (1.8-7.7); NEUTROPHILS % (AUTO) 44.9 % (40.0-70.0); PLATELET COUNT (AUTO) 247 K/uL (150-450); RED BLOOD CELL COUNT(AUTO) 4.37 MIL/uL (4.00-5.20); RED CELL DISTRIBUTION WIDTH 13.2 % (11.5-14.5)
[2023-06-04 08:23] LABS: ANION GAP 12 mmol/L (8-16); CALCIUM, TOTAL 9.6 mg/dL (8.8-10.5); CARBON DIOXIDE 27 mmol/L (22-29); CHLORIDE 100 mmol/L (98-107); GLOMERULAR FILTR. RATE CALC > 60 mL/min (>60); GLUCOSE,RANDOM 134 mg/dL (70-110); POTASSIUM 3.8 mmol/L (3.5-5.1); SODIUM SERUM 139 mmol/L (136-145); UREA NITROGEN, BLOOD 8 mg/dL (7-18)
[2023-06-04] MEDS: DOCUSATE SODIUM 100 MG CAPSULE PO SCH ×2 (09:00→16:52)
[2023-06-04 09:19] VITALS: BP 118/78; PULSE 85; RESP 18; TEMP 98.1
[2023-06-04 11:46] LABS: GLUCOMETER DEV NAME(LOC) 3E.C; GLUCOSE,POINT OF CARE 143 MG/DL (70-110)
[2023-06-04 16:45] VITALS: BP 130/80; PULSE 70; RESP 18; TEMP 98
[2023-06-04] MEDS: ACETAMINOPHEN 325 MG TABLET PO PRN (16:52)
[2023-06-04 17:52] VITALS: RESP 18
[2023-06-04] MEDS: QUEtiapine FUMARATE 200 MG TABLET PO SCH (21:30)
[2023-06-04 21:39] VITALS: BP 125/90; PULSE 84; RESP 18; TEMP 97.7
[2023-06-05 07:13] LABS: BASOPHILS % (AUTO) 1.6 % (0.0-2.0); EOSINOPHILS % (AUTO) 4.9 % (1.0-6.0); HEMATOCRIT 37.7 % (36-46); HEMOGLOBIN 13.1 g/dL (12.0-16.0); LYMPHOCYTES # (AUTO) 1.5 K/uL (1.0-4.8); LYMPHOCYTES % (AUTO) 42.1 % (22.0-44.0); MEAN CORPUSCULAR HEMOGLOBIN 33.5 pg (26.0-34.0); MEAN CORPUSCULAR HGB CONC 34.6 G/dL (31.0-37.0); MEAN CORPUSCULAR VOLUME 97 fL (80-100); MONOCYTES # (AUTO) 0.3 K/uL (0.1-1.0); MONOCYTES % (AUTO) 9.6 % (2.0-9.0); NEUTROPHILS # (AUTO) 1.5 K/uL (1.8-7.7); NEUTROPHILS % (AUTO) 41.8 % (40.0-70.0); PLATELET COUNT (AUTO) 230 K/uL (150-450); WHITE BLOOD COUNT (AUTO) 3.5 K/uL (4.5-11.0)
[2023-06-05 08:30] VITALS: BP 153/74; PULSE 96; RESP 18; TEMP 97
[2023-06-05] MEDS: DOCUSATE SODIUM 100 MG CAPSULE PO SCH ×2 (08:37→16:14)
[2023-06-05] MEDS: LORazepam 2 MG TABLET PO PRN (09:20)
[2023-06-05 20:57] VITALS: BP 126/87; PULSE 83; RESP 18; TEMP 97.8
[2023-06-05] MEDS: QUEtiapine FUMARATE 200 MG TABLET PO SCH (21:15)
[2023-06-06 06:59] LABS: BASOPHILS % (AUTO) 1.8 % (0.0-2.0); EOSINOPHILS % (AUTO) 4.3 % (1.0-6.0); HEMATOCRIT 39.5 % (36-46); HEMOGLOBIN 13.2 g/dL (12.0-16.0); LYMPHOCYTES # (AUTO) 1.6 K/uL (1.0-4.8); LYMPHOCYTES % (AUTO) 44.4 % (22.0-44.0); MEAN CORPUSCULAR HEMOGLOBIN 32.5 pg (26.0-34.0); MEAN CORPUSCULAR HGB CONC 33.5 G/dL (31.0-37.0); MEAN CORPUSCULAR VOLUME 97 fL (80-100); MONOCYTES # (AUTO) 0.3 K/uL (0.1-1.0); MONOCYTES % (AUTO) 8.8 % (2.0-9.0); NEUTROPHILS # (AUTO) 1.4 K/uL (1.8-7.7); NEUTROPHILS % (AUTO) 40.7 % (40.0-70.0); PLATELET COUNT (AUTO) 231 K/uL (150-450); RED BLOOD CELL COUNT(AUTO) 4.07 MIL/uL (4.00-5.20); RED CELL DISTRIBUTION WIDTH 13.1 % (11.5-14.5); WHITE BLOOD COUNT (AUTO) 3.5 K/uL (4.5-11.0)
[2023-06-06] MEDS: DOCUSATE SODIUM 100 MG CAPSULE PO SCH ×2 (10:16→17:14)
[2023-06-06 11:07] VITALS: BP 122/64; PULSE 60; RESP 18; TEMP 97.5
[2023-06-06 20:51] VITALS: BP 158/100; PULSE 82; RESP 18; TEMP 97.9
[2023-06-06] MEDS: QUEtiapine FUMARATE 200 MG TABLET PO SCH (21:00)
[2023-06-06] MEDS: ACETAMINOPHEN 325 MG TABLET PO PRN (21:18)
[2023-06-06 21:51] VITALS: RESP 18
[2023-06-07] MEDS: DOCUSATE SODIUM 100 MG CAPSULE PO SCH ×2 (08:28→16:14)
[2023-06-07 08:54] VITALS: BP 121/86; PULSE 87; RESP 17; TEMP 97.8
[2023-06-07] MEDS: QUEtiapine FUMARATE 200 MG TABLET PO SCH (20:57)
[2023-06-07 22:05] VITALS: BP 123/77; PULSE 78; RESP 18; TEMP 98
[2023-06-08] MEDS: DOCUSATE SODIUM 100 MG CAPSULE PO SCH ×2 (08:23→16:11)
[2023-06-08] MEDS: LORazepam 2 MG TABLET PO PRN (11:25)
[2023-06-08 12:32] VITALS: BP 130/74; PULSE 89; RESP 18; TEMP 97.7
[2023-06-08 20:30] VITALS: BP 144/82; PULSE 76; RESP 18; TEMP 97.9
[2023-06-08] MEDS: ACETAMINOPHEN 325 MG TABLET PO PRN (20:36)
[2023-06-08] MEDS: QUEtiapine FUMARATE 200 MG TABLET PO SCH (21:10)
[2023-06-08 21:30] VITALS: RESP 18
[2023-06-09] MEDS: DOCUSATE SODIUM 100 MG CAPSULE PO SCH (08:46)
[2023-06-09] MEDS ORDERED: QUET200T PO (10:44)
[2023-06-09] MEDS ORDERED: DOCU-385 PO (10:46)
[2023-06-09 12:16] VITALS: BP 129/73; PULSE 78; RESP 18; TEMP 97.8
== END 2023-06-09 17:03 | disposition home or self-care (01) | DRG 881 ==
LOC: EMS 15:38 → UNDOADMIN 06-01 04:25 → AHU 06-01 04:25 → 3EX 06-01 16:21 → AHU 06-01 16:21 → 3EX 06-02 08:49
PROVIDERS: ADMIT Psychiatry & Neurology Psychiatry; ATTEND Psychiatry & Neurology Psychiatry
PROC: GZHZZZZ Group Psychotherapy (ICD-10-PCS; principal; 2023-06-07)
PROC: GZ51ZZZ Individual Psychotherapy, Behavioral (ICD-10-PCS; 2023-06-07)
DX: F32.9 Major depressive disorder, single episode, unspecified (principal); E87.20 Acidosis, unspecified; R45.851 Suicidal ideations; F41.9 Anxiety disorder, unspecified; E87.6 Hypokalemia; G47.00 Insomnia, unspecified; F29 Unspecified psychosis not due to a substance or known physiological condition; Z20.822 Contact with and (suspected) exposure to COVID-19; T50.902A Poisoning by unspecified drugs, medicaments and biological substances, intentional self-harm, initial encounter; Y92.89 Other specified places as the place of occurrence of the external cause; Z88.2 Allergy status to sulfonamides; Z79.899 Other long term (current) drug therapy
CPT/HCPCS: 80048; 80053; 80164; 80307; 81001; 82693; 82962; 83605; 83735; 85025; 93005; 99291; G0378; G0480; G0481; J1644; J3475; J3480; J7030; J7120; 36415-L1; 36415-TC